=== PATIENT | female | born 1995 | race Caucasian/White ===

== ENCOUNTER 2020-10-08 16:52 | Inpatient (IN) | payer BC ==
[~2020-10-08] VITALS: Ht 157.5 cm; Wt 74.4 kg
[2020-10-08 17:24] LABS: HEMOGLOBIN 11.7 gm/dl (12.3-15.3); RED BLOOD COUNT 3.87 M/UL (4.00-5.10); WHITE BLOOD COUNT 12.1 K/UL (4.5-11.0)
[2020-10-08] MEDS ORDERED: HEALTHY HEART1 EACH PO (18:06)
[2020-10-08] MEDS ORDERED: PRENATAL VITAM1 EAC3 PO (18:06)
[2020-10-08] MEDS ORDERED: UNISOM25 MG PO (18:07)
[2020-10-08] MEDS ORDERED: PEPCID20 MG PO (18:07)
[2020-10-08 18:12] LABS: BUN/CREATININE RATIO 14 (0-10)
[2020-10-09] MEDS ORDERED: IBUPROFEN600 MG PO (15:22)
[2020-10-09] MEDS ORDERED: COLACE 100MG C100 MG PO (15:22)
[2020-10-10 05:57] LABS: HEMOGLOBIN 11.4 gm/dl (12.3-15.3)
== END 2020-10-10 18:05 | disposition home or self-care (01) | DRG 807 ==
LOC: GENOP 16:52 → OB 17:09
PROVIDERS: Obstetrics & Gynecology; ADMIT Obstetrics & Gynecology
PROC: 0U7C7ZZ Dilation of Cervix, Via Natural or Artificial Opening (ICD-10-PCS; 2020-10-08)
PROC: 10E0XZZ Delivery of Products of Conception, External Approach (ICD-10-PCS; principal; 2020-10-09)
PROC: 10907ZC Drainage of Amniotic Fluid, Therapeutic from Products of Conception, Via Natural or Artificial Opening (ICD-10-PCS; 2020-10-09)
PROC: 3E033VJ Introduction of Other Hormone into Peripheral Vein, Percutaneous Approach (ICD-10-PCS; 2020-10-09)
PROC: 0UQMXZZ Repair Vulva, External Approach (ICD-10-PCS; 2020-10-09)
PROC: 3E0234Z Introduction of Serum, Toxoid and Vaccine into Muscle, Percutaneous Approach (ICD-10-PCS; 2020-10-09)
DX: O13.4 Gestational [pregnancy-induced] hypertension without significant proteinuria, complicating childbirth (principal); Z37.0 Single live birth; Z3A.37 37 weeks gestation of pregnancy; O70.0 First degree perineal laceration during delivery; Z23 Encounter for immunization; O26.893 Other specified pregnancy related conditions, third trimester; G43.909 Migraine, unspecified, not intractable, without status migrainosus
CPT/HCPCS: 36415; 51702; 80053; 81001; 82570; 84156; 84550; 85014; 85018; 85025; 90715; J2405; J2590; J7120; U0002